=== PATIENT | female | born 1985 | race African-American/Black ===

== ENCOUNTER 2023-01-02 10:53 | Outpatient (REF) | payer OTHER, SELFPAY ==
[2023-01-03 05:19] LABS: CT PCR NOT DETECTED (Not Detect.); NG PCR NOT DETECTED (Not Detect.)
[2023-01-04 14:05] LABS: BV Int Neg Control Negative (Negative); BV Int Pos Control Positive (Positive)
[2023-01-08 22:54] LABS: HPV mRNA E6/E7 rflx Not Detected (Not Detected)
== END 2023-01-02 10:54 | disposition home or self-care (01) ==
LOC: HO.LNP 10:53
PROVIDERS: PCP Internal Medicine; Visit Provider Advanced Practice Midwife
DX: Z01.419 Encounter for gynecological examination (general) (routine) without abnormal findings (principal); Z11.51 Encounter for screening for human papillomavirus (HPV); N90.9 Noninflammatory disorder of vulva and perineum, unspecified; Z20.2 Contact with and (suspected) exposure to infections with a predominantly sexual mode of transmission
CPT/HCPCS: 0353U; 87480; 87510; 87624; 87660; 88142

== ENCOUNTER 2023-05-07 10:34 | Outpatient (REF) | payer OTHER, SELFPAY | END 2023-05-07 10:35 | disposition home or self-care (01) | LOC: HO.LNP 10:34 | PROVIDERS: Visit Provider Obstetrics & Gynecology | DX: N90.9 Noninflammatory disorder of vulva and perineum, unspecified (principal) | CPT/HCPCS: 11102; 88305; 88312 ==

== ENCOUNTER 2023-05-07 10:34 | Outpatient (AMB) | payer OTHER, SELFPAY ==
[2023-05-07 10:43] VITALS: BP 118/70; BMI 37.3
--- NOTE | 2023-05-07 10:43 | MHC.OFFVIS ---
Intake Vital Signs 05/07/23 10:43 Height 5 ft 5 in Weight 224 lb BMI 37.3 BP 118/70 Intake Visit Reasons: evaluate nohemi lesion per Tita [place] Avian Keeper Required: No Information Interpreted: non-clinical & clinical Instrument Shop Supervisor: Instrument Shop Supervisor Present (Karla) Allergies penicillin G [PENICILLIN G] Allergy (Intermediate, Verified 05/07/23 10:44) hives penicillin V Allergy (Unknown, Verified 05/07/23 10:44) hives Is last menstrual period known: Yes Last menstrual period: 04/18/23 Post menopausal: No HPI HPI Comments History of Present Illness Details Referred from Latha [place] CNM regarding perirectal lesions evaluation. The patient 1st noticed left perirectal lesion 2 months ago. The patient gives a history of genital wart on the left side that it was treated with TCA application and resolved afterwards. No history of abnormal Pap smear . [facility] Social History Alcohol intake: current Alcohol intake frequency: a few times a month Female Reproductive History Menstrual Age of Menarche: 12 Date of last menstrual period: 04/18/23 control method: none Date of last pap smear: 01/07/23 (negative) Review of Systems Const All systems reviewed & are unremarkable except as noted in HPI and below Physical Exam Vital Signs: Last Vital Signs BP 118/70 05/07/23 10:43 BMI result Body Mass Index 37.3 General: Yes no CVA tenderness External Female Exam: normal appearance of the urethra and other (Left perirectal 2 cm lesion, 2x0.3 cm similar right perirectal lesions ) Speculum Exam - Vagina: normal appearance of the vagina, normal palpation, no lesions and no masses Speculum Exam - Cervix: normal appearance of the cervix, normal palpation, no lesions, no masses and nontender Bimanual exam- vagina & uterus: normal bimanual exam, normal palpation, uterine size normal, normal palpation, uterine shape normal, No Cervical tenderness present and non-tender Bimanual Exam- Adnexa, other: normal adnexae Back/Spine/Pelvis Back: no CVA tenderness Office Procedures PROMOTION WRITER Biopsy Before the procedure was started d/w patient the procedure, alternatives ( do nothing, medical rx), & all the risks associated with the procedure ( bleeding , infection, vulvar scarring, painful intercourse, injury to vessels, possible need for transfusion with all its risks) then patient signed the consent. Preop dx: Left perirectal lesion Op: Left Left perirectal lesion biopsy Post op: Same Anesthesia: Lidocaine 1% 3cc used Procedure: Using betadine the area was scrubbed and draped in the usual manner. 3 cc of lidocaine was used for anesthesia at the left vulvar lesion area ; using scissors and pickup the Left perirectal lesion was biopsy. Pressure was used for hemostasis. The patient tolerated the procedure well. Discharge Instructions: The patient was instructed to schedule an appointment in 2 weeks for follow-up and to call if temp>100.4, area of the biopsy redness or pain, nausea/vomiting. This note was generated with a voice recognition program. Some errors may have been overlooked during the review of this note. Sometimes these errors may affect the content or meaning of a given sentence. 42868-[id number] of Vulva/Perineum Procedure code (CPT) selection complete Assessment & Plan Assessment & Plan (1) Lesion of female perineum: Comment: Left 2 cm perirectal lesion Similar 2x 0.3 cm right perirectal lesions Code(s): N90.9 - Noninflammatory disorder of vulva and perineum, unspecified Plan: Discussed with the patient the finding on on perineal exam showing left cm perirectal lesion in addition to similar 2x 0.3 cm perirectal lesions. Recommended left perirectal lesion biopsy, to rule out LEONORA. Biopsy done, see procedure note. Instructions given the patient to schedule follow-up appointment and discussion of options of treatment 2 weeks Orders: Orders AMB PROMOTION WRITER Biopsy Today N90.9 - Noninflammatory disorder of vulva and perineum, unspecified Coding Level of Care Code Est Pt Level 3 (23496) Procedure Only Diagnoses Lesion of female perineum N90.9 CPT Codes PROMOTION WRITER Biopsy - CPT: 38927-Qzgtpd of Vulva/Perineum ([id number])
== END 2023-05-07 11:09 | disposition home or self-care (01) ==
PROVIDERS: Visit Provider Obstetrics & Gynecology
DX: N90.9 Noninflammatory disorder of vulva and perineum, unspecified (principal)
CPT/HCPCS: 11102

== ENCOUNTER 2023-07-27 13:05 | Outpatient (AMB) | payer OTHER, SELFPAY ==
--- NOTE | 2023-07-27 13:07 | A.OFFVIS_ITS ---
Intake Vital Signs 07/27/23 13:09 Height 5 ft 5 in Weight 222 lb 10.67 oz BMI 37.0 BP 122/70 Intake Visit Reasons: Biopsy Results/DO NOT RS Motion Picture Projectionist Required: No Information Interpreted: non-clinical & clinical Accompanied by: Self / Same As Patient Allergies penicillin G [PENICILLIN G] Allergy (Intermediate, Verified 07/27/23 13:10) hives penicillin V Allergy (Unknown, Verified 07/27/23 13:10) hives Is last menstrual period known: Yes Last menstrual period: 07/17/23 HPI HPI Comments History of Present Illness Details Presenting post perirectal biopsy doing well with no complaints. The pathology showed the following: Seborrheic keratosis. [facility] Social History Alcohol intake: current Alcohol intake frequency: a few times a month Female Reproductive History Menstrual Age of Menarche: 12 Date of last menstrual period: 07/17/23 Review of Systems Const All systems reviewed & are unremarkable except as noted in HPI and below Reports as per HPI and Reports no additional complaints GI Reports no additional complaints Reports no additional complaints Physical Exam Vital Signs: Last Vital Signs BP 122/70 07/27/23 13:09 BMI result Body Mass Index 37.0 Assessment & Plan Assessment & Plan (1) Lesion of female perineum: Comment: seborrheic keratosis Code(s): N90.9 - Noninflammatory disorder of vulva and perineum, unspecified Plan: Discussed with the patient the results the pathology, the patient was reassured. Instructions given to patient to call in case of identification of heart , open ulcer nonhealing, increase in the size or shape , otherwise will follow up bleeding next annual exam appointment. All questions answered, the patient verbalized understanding Coding Level of Care Code Est Pt Level 3 (98759) Diagnoses Lesion of female perineum N90.9
[2023-07-27 13:09] VITALS: BP 122/70; BMI 37.0
== END 2023-07-27 13:38 | disposition home or self-care (01) ==
LOC: HO.HWS 13:06
PROVIDERS: PCP Internal Medicine; Visit Provider Obstetrics & Gynecology
DX: N90.9 Noninflammatory disorder of vulva and perineum, unspecified (principal)
CPT/HCPCS: 99213

== ENCOUNTER → 2023-07-27 13:05 | Outpatient (BNVA) | payer OTHER, SELFPAY | PROVIDERS: PCP Internal Medicine; Visit Provider Obstetrics & Gynecology ==